=== PATIENT | female | born 1975 | race Caucasian/White ===

== ENCOUNTER 2022-03-21 06:47 | Day surgery (SDC) | payer MEDICARE, MEDICAID ==
[2022-03-20 12:11] VITALS: BMI 27.8
[~2022-03-21 06:47] MED LIST: EPINEPHrine 0.3 MG in Ophthalmic Irrigation Solution 500 ML IRR SCH
[2022-03-21] MEDS ORDERED: Phenylephrine 2.5% Ophth Soln 5 ML BOT ONE (07:12)
[2022-03-21] MEDS ORDERED: Cyclopentolate 1% Opth Drop 2 ML BOT ONE (07:12)
== END 2022-03-21 10:25 | disposition home or self-care (01) ==
LOC: SDC 06:47
PROVIDERS: ATTEND Ophthalmology Retina Specialist
PROC: 08T43ZZ Resection of Right Vitreous, Percutaneous Approach (ICD-10-PCS; principal; 2022-03-21)
PROC: 08NE3ZZ Release Right Retina, Percutaneous Approach (ICD-10-PCS; 2022-03-21)
PROC: 08QE3ZZ Repair Right Retina, Percutaneous Approach (ICD-10-PCS; 2022-03-21)
DX: H43.11 Vitreous hemorrhage, right eye (principal); Z79.4 Long term (current) use of insulin; Z79.890 Hormone replacement therapy; Z79.899 Other long term (current) drug therapy; Z98.41 Cataract extraction status, right eye; Z98.42 Cataract extraction status, left eye; Z96.1 Presence of intraocular lens
CPT/HCPCS: 36416; J0171